=== PATIENT | female | born 1940 | race Caucasian/White ===

== ENCOUNTER 2016-08-04 13:48 | Inpatient (IN) | payer OTHER ==
[~2016-08-04] VITALS: Ht 162.6 cm; Wt 80.5 kg
[~2016-08-04 13:48] MED LIST: ALDACTONE25 MG PO; CARVEDILOL6.25 MG PO; COREG6.25 M1 PO; CORGARD20 MG PO; COZAAR50 MG PO; Chronulac,Cephulac,E PO; Corgard PO; Cozaar PO; DIABETA5 MG PO; DRISDOL50000 UNIT PO; ENULOSE10 GM/15 M PO; FLANDERS BUTTO113 GM TP; FUROSEMIDE40 MG PO; Flovent 110 mcg IH; GLUCOPHAGE500 MG PO; GLUCOVANCE 51 TABLET PO; IMODIUM2 MG PO; KEFLEX500 MG PO; LANTUS 10100 UNITS/ SC; LANTUS 3 M100 UNITS/ SC; LANTUS 3 M100 UNITS1 SC; LANTUS100 UNIT/1 SQ; LASIX40 MG PO; LATANOPROST2.5 ML BOTH EYES; LEVOTHROID150 MCG PO; LOPERAMIDE2 M1 PO; LOPERAMIDE2 MG PO; LOSARTAN POTASS50 MG G-TUBE; LUMIGAN 0.50 DROP/2. BOTH EYES; LUMIGAN 0.50 DROP/22 BOTH EYES; Levothroid,Synthroid PO; METRONIDAZOLE500 MG PO; MIRALAX, GLYCOL1 PK1 PO; NABI650T PO; OMEPRAZOLE40 M1 PO; PANTOPRAZOLE SO40 MG PO; PERCOCET 5/31 TABLET PO; PREDNISONE20 MG PO; PRILOSEC40 MG PO; PROTONIX40 MG PO; Proventil,Ventolin H IH; QUESTRAN LIGHT210 GM PO; SERTRALINE HCL50 MG PO; SODIUM BICARBO325 MG PO; SPIRONOLACTONE25 MG PO; SYNTHROID100 MCG PO; SYNTHROID125 MCG PO; SYNTHROID137 MCG PO; TRAMADOL HCL50 MG PO; Tamiflu PO; VALIUM5 MG PO; VEETIDS 500500 MG PO; VITAMIN B-12250 MCG PO; VITAMIN D250000 UNIT PO; VITAMIN E400 UNIT PO; XIFAXAN550 MG PO
[2016-08-04 14:42] LABS: HEMATOCRIT 29.4 % (36.0-46.0); MCH 32.8 PG (29.0-34.0); MCHC 33.3 G/DL (30.0-36.0); MCV 98.3 FL (83-99); MEAN PLAT.VOLUME 9.3 uM^3 (9.5-12.4); PLATELET COUNT 79 K/uL (156-360); RBC DIS.WIDTH-CV 13.7 % (11.8-14.6); RBC DIS.WIDTH-SD 49.1 % (39-53); RED BLOOD COUNT 2.99 M/uL (3.80-5.20); WHITE BLOOD COUNT 3.9 K/uL (4.1-10.2)
[2016-08-04 14:54] LABS: CHLORIDE 123 mEq/L (99-109); POTASSIUM 4.5 mEq/L (3.7-5.4); SODIUM 142 mEq/L (136-147)
[2016-08-04 14:56] LABS: GLUCOSE 190 mg/dL (70-99)
[2016-08-04 14:57] LABS: ANION GAP 9 MEQ/L (2-14)
[2016-08-04 14:58] LABS: TOTAL BILIRUBIN 0.9 mg/dL (0.0-1.0)
[2016-08-04 14:59] LABS: ALKALINE PHOSPHATASE 150 IU/L (3-129)
[2016-08-04 15:00] LABS: GFR ESTIMATE (CALCULATED) 20 mL/min/
[2016-08-04 15:01] LABS: UREA NITROGEN (BUN) 49 mg/dL (9-23)
[2016-08-04 15:03] LABS: LIPASE 63 U/L (1.0-51.0)
[2016-08-04 15:44] LABS: ADD MIUA? YES; BILIRUBIN NEGATIVE; BLOOD MODERATE; COLOR YELLOW ((YELLOW)); GLUCOSE (STRIP) 50; KETONES NEGATIVE; LEUKOCYTES SMALL; NITRITE NEGATIVE; PROTEIN (STRIP) 30; SPECIFIC GRAVITY 1.013 (1.000-1.030); UROBILINOGEN 0.2 MG/DL (0.2-1.0)
[2016-08-04 15:47] LABS: BACTERIA RARE /HPF; EPITHELIAL CELLS RARE /HPF; MUCUS TRACE /LPF; RED BLOOD CELLS 0-5 /HPF (0-5); UCUL ADDED? NO; WHITE BLOOD CELLS 30-40 /HPF (0-5)
[2016-08-04 17:00] LABS: CHLORIDE 125 mEq/L (99-109); POTASSIUM 4.8 mEq/L (3.7-5.4); SODIUM 146 mEq/L (136-147)
[2016-08-04 17:02] LABS: GLUCOSE 156 mg/dL (70-99)
[2016-08-04 17:03] LABS: ANION GAP 9 MEQ/L (2-14)
[2016-08-04 17:06] LABS: GFR ESTIMATE (CALCULATED) 21 mL/min/
[2016-08-04 17:07] LABS: UREA NITROGEN (BUN) 47 mg/dL (9-23)
[2016-08-04 17:46] LABS: CARBON DIOXIDE (BICARBONATE) 12.5 MEQ/L (20-31)
[2016-08-04] MEDS ORDERED: LUMIGAN 0.50 DROP/22 BOTH EYES (18:43)
[2016-08-04] MEDS ORDERED: LANTUS 10100 UNITS/ SC (18:44)
[2016-08-04] MEDS ORDERED: ERGOCALCIF50000 UNIT PO (18:44)
[2016-08-04 22:10] VITALS: BP 134/62
[2016-08-05] VITALS (8 sets, daily range): BP systolic 126–164; BP diastolic 58–71
[2016-08-05 00:21] LABS: C DIFF TOXIN NEGATIVE (NEGATIVE)
[2016-08-05 00:22] LABS: PROBE CHECK PASS; SPECIMEN PROCESSING CONTROL PASS
[2016-08-05 08:22] LABS: HEMATOCRIT 28.3 % (36.0-46.0); MCH 32.4 PG (29.0-34.0); MCHC 32.2 G/DL (30.0-36.0); MCV 100.7 FL (83-99); MEAN PLAT.VOLUME 9.4 uM^3 (9.5-12.4); PLATELET COUNT 85 K/uL (156-360); RBC DIS.WIDTH-CV 13.9 % (11.8-14.6); RBC DIS.WIDTH-SD 50.9 % (39-53); RED BLOOD COUNT 2.81 M/uL (3.80-5.20); WHITE BLOOD COUNT 4.1 K/uL (4.1-10.2)
[2016-08-05 09:07] LABS: ANION GAP 12 MEQ/L (2-14); CHLORIDE 125 MEQ/L (99-109); GFR ESTIMATE (CALCULATED) 22 mL/min/; POTASSIUM 4.5 MEQ/L (3.7-5.4); SAMPLE HEMOLYSIS CHECK 0; SAMPLE ICTERIC CHECK 0; SAMPLE LIPEMIA CHECK 0; SODIUM 148 MEQ/L (136-147); UREA NITROGEN (BUN) 50 mg/dL (9-23)
[2016-08-05 09:20] LABS: GLUCOSE 106 mg/dL (70-99)
[2016-08-05 11:04] LABS: INTERNAL CONTROL VALID? YES
[2016-08-05 12:18] LABS: HEMATOCRIT 27.9 % (36.0-46.0); MCV 101.8 FL (83-99)
[2016-08-05 14:59] LABS: UR CREATININE CONCENTRATION 84.9 MG/DL
[2016-08-05 15:20] LABS: BASE EXCESS -13.8 mEq/L (-3 to +3); BICARBONATE 11.1 mEq/L (22-26); CARBOXY HGB 1.9 % (0-5); METHEMOGLOBIN 1.7 % (0-1.5); PO2 104 mm Hg (80-100); pH 7.31 (7.35-7.45)
[2016-08-05 15:21] LABS: PCO2 22 mm Hg (35-45)
[2016-08-05 15:22] LABS: COMMENTS - BLOOD GASES A+C+; FI02 21 %; SITE R RADIAL; TOTAL RESP RATE 16 resp/min
[2016-08-05 15:52] LABS: HEMATOCRIT 28.1 % (36.0-46.0)
[2016-08-05 16:35] LABS: POINT-OF-CARE METER ID UU13113700
[2016-08-05 22:06] LABS: MCV 99.6 FL (83-99)
[2016-08-06 03:01] VITALS: BP 124/67; BP 138/59
[2016-08-06 06:22] LABS: HEMATOCRIT 24.2 % (36.0-46.0); MCH 33.2 PG (29.0-34.0); MCHC 33.9 G/DL (30.0-36.0); MEAN PLAT.VOLUME 10.4 uM^3 (9.5-12.4); PLATELET COUNT 71 K/uL (156-360); RBC DIS.WIDTH-CV 13.6 % (11.8-14.6); RBC DIS.WIDTH-SD 49.3 % (39-53); RED BLOOD COUNT 2.47 M/uL (3.80-5.20); WHITE BLOOD COUNT 3.2 K/uL (4.1-10.2)
[2016-08-06 06:49] LABS: ANION GAP 9 MEQ/L (2-14); CHLORIDE 114 MEQ/L (99-109); GFR ESTIMATE (CALCULATED) 20 mL/min/; POTASSIUM 3.7 MEQ/L (3.7-5.4); SAMPLE HEMOLYSIS CHECK 0; SAMPLE ICTERIC CHECK 0; SAMPLE LIPEMIA CHECK 0; UREA NITROGEN (BUN) 46 mg/dL (9-23)
[2016-08-06 06:50] LABS: GLUCOSE 234 mg/dL (70-99); SODIUM 139 MEQ/L (136-147)
[2016-08-06 07:54] VITALS: BP 147/65
[2016-08-06 10:53] LABS: INTERNAL CONTROL VALID? YES
[2016-08-06 12:00] VITALS: BP 113/56
[2016-08-06 16:00] VITALS: BP 111/54
[2016-08-06 19:20] VITALS: BP 125/61
[2016-08-06 23:24] VITALS: BP 130/63
[2016-08-07 04:03] VITALS: BP 122/65
[2016-08-07 06:08] LABS: EOSINOPHIL (%) 5.6 % (0-5); EOSINOPHIL COUNT 0.2 K/uL (0-0.3); HEMATOCRIT 24.1 % (36.0-46.0); IMMATURE GRANULOCYTE (%) 0.3 % (0.0-0.7); INSTRUMENT ABS NEUTROPHIL CT 1.4 K/uL; LYMPHOCYTE COUNT 0.9 K/uL (1.0-2.8); MCH 33.2 PG (29.0-34.0); MCV 97.6 FL (83-99); MEAN PLAT.VOLUME 10.3 uM^3 (9.5-12.4); MONOCYTE (%) 13.5 % (3-12); MONOCYTE COUNT 0.4 K/uL (0-0.8); NEUTROPHIL COUNT 1.4 K/uL (1.8-6.4); PLATELET COUNT 63 K/uL (156-360); RBC DIS.WIDTH-CV 13.5 % (11.8-14.6); RBC DIS.WIDTH-SD 48.3 % (39-53); RED BLOOD COUNT 2.47 M/uL (3.80-5.20); WHITE BLOOD COUNT 2.9 K/uL (4.1-10.2)
[2016-08-07 06:47] LABS: ALKALINE PHOSPHATASE 132 IU/L (3-129); ANION GAP 7 MEQ/L (2-14); CHLORIDE 113 MEQ/L (99-109); GFR ESTIMATE (CALCULATED) 22 mL/min/; POTASSIUM 3.8 MEQ/L (3.7-5.4); SAMPLE HEMOLYSIS CHECK 0; SAMPLE ICTERIC CHECK 0; SAMPLE LIPEMIA CHECK 0; SODIUM 143 MEQ/L (136-147); TOTAL BILIRUBIN 0.7 MG/DL (0.0-1.0); UREA NITROGEN (BUN) 42 mg/dL (9-23)
[2016-08-07 06:50] LABS: GLUCOSE 85 mg/dL (70-99)
[2016-08-07 06:53] LABS: INTER. NORMALIZED RATIO 1.2; PROTHROMBIN TIME 12.3 (9.2-11.2)
[2016-08-07 08:40] VITALS: BP 123/61
[2016-08-07 16:14] VITALS: BP 132/59
[2016-08-07 23:04] VITALS: BP 136/60
[2016-08-08 07:12] LABS: EOSINOPHIL (%) 4.7 % (0-5); EOSINOPHIL COUNT 0.1 K/uL (0-0.3); HEMATOCRIT 25.2 % (36.0-46.0); IMMATURE GRANULOCYTE (%) 0.3 % (0.0-0.7); INSTRUMENT ABS NEUTROPHIL CT 1.6 K/uL; LYMPHOCYTE COUNT 0.8 K/uL (1.0-2.8); MCH 32.2 PG (29.0-34.0); MCHC 32.9 G/DL (30.0-36.0); MCV 97.7 FL (83-99); MEAN PLAT.VOLUME 10.4 uM^3 (9.5-12.4); MONOCYTE (%) 12.8 % (3-12); MONOCYTE COUNT 0.4 K/uL (0-0.8); NEUTROPHIL (%) 54.8 % (45-76); NEUTROPHIL COUNT 1.6 K/uL (1.8-6.4); PLATELET COUNT 63 K/uL (156-360); RBC DIS.WIDTH-CV 13.7 % (11.8-14.6); RBC DIS.WIDTH-SD 49.3 % (39-53); RED BLOOD COUNT 2.58 M/uL (3.80-5.20)
[2016-08-08 07:16] VITALS: BP 125/61
[2016-08-08 07:26] LABS: INTER. NORMALIZED RATIO 1.2; PROTHROMBIN TIME 12.1 (9.2-11.2)
[2016-08-08 07:56] LABS: ALKALINE PHOSPHATASE 150 IU/L (3-129); ANION GAP 7 MEQ/L (2-14); CHLORIDE 114 MEQ/L (99-109); GFR ESTIMATE (CALCULATED) 22 mL/min/; POTASSIUM 4.2 MEQ/L (3.7-5.4); SAMPLE HEMOLYSIS CHECK 0; SAMPLE ICTERIC CHECK 0; SAMPLE LIPEMIA CHECK 0; SODIUM 145 MEQ/L (136-147); UREA NITROGEN (BUN) 41 mg/dL (9-23)
[2016-08-08 07:59] LABS: GLUCOSE 134 mg/dL (70-99); TOTAL BILIRUBIN 0.5 MG/DL (0.0-1.0)
[2016-08-08 22:48] VITALS: BP 156/66
[2016-08-09 06:50] LABS: EOSINOPHIL (%) 6.3 % (0-5); EOSINOPHIL COUNT 0.3 K/uL (0-0.3); HEMATOCRIT 27.9 % (36.0-46.0); IMMATURE GRANULOCYTE (%) 0.2 % (0.0-0.7); INSTRUMENT ABS NEUTROPHIL CT 2.3 K/uL; LYMPHOCYTE COUNT 1.5 K/uL (1.0-2.8); MCH 32.6 PG (29.0-34.0); MCHC 33.3 G/DL (30.0-36.0); MCV 97.9 FL (83-99); MEAN PLAT.VOLUME 10.7 uM^3 (9.5-12.4); MONOCYTE (%) 11.5 % (3-12); MONOCYTE COUNT 0.5 K/uL (0-0.8); NEUTROPHIL (%) 48.7 % (45-76); NEUTROPHIL COUNT 2.3 K/uL (1.8-6.4); RBC DIS.WIDTH-CV 13.6 % (11.8-14.6); RBC DIS.WIDTH-SD 48.8 % (39-53); RED BLOOD COUNT 2.85 M/uL (3.80-5.20); WHITE BLOOD COUNT 4.6 K/uL (4.1-10.2)
[2016-08-09 06:52] LABS: PLATELET COUNT 87 K/uL (156-360)
[2016-08-09 07:12] LABS: ALKALINE PHOSPHATASE 134 IU/L (3-129); ANION GAP 11 MEQ/L (2-14); CHLORIDE 110 MEQ/L (99-109); GFR ESTIMATE (CALCULATED) 27 mL/min/; POTASSIUM 3.8 MEQ/L (3.7-5.4); SAMPLE HEMOLYSIS CHECK 0; SAMPLE ICTERIC CHECK 0; SAMPLE LIPEMIA CHECK 0; SODIUM 145 MEQ/L (136-147); UREA NITROGEN (BUN) 37 mg/dL (9-23)
[2016-08-09 07:14] LABS: GLUCOSE 63 mg/dL (70-99); TOTAL BILIRUBIN 0.9 MG/DL (0.0-1.0)
[2016-08-09 07:42] VITALS: BP 128/63
[2016-08-09] MEDS ORDERED: NADOLOL20 MG PO (10:38)
[2016-08-09] MEDS ORDERED: PROTONIX40 MG PO (10:38)
== END 2016-08-09 11:27 | disposition home or self-care (01) | DRG 392 ==
LOC: EME 13:48 → EDOF 19:50 → 5WEST 19:50 → EDOF 19:50 → 5WEST 22:16 → 5EAST 08-05 10:22
PROVIDERS: Emergency Medicine; Hospitalist; Internal Medicine Gastroenterology; Internal Medicine Nephrology; Nurse Practitioner Adult Health; Pediatrics; Physician Assistant Medical
PROC: 0DB68ZX Excision of Stomach, Via Natural or Artificial Opening Endoscopic, Diagnostic (ICD-10-PCS; principal; 2016-08-08)
DX: K59.1 Functional diarrhea (principal); N17.9 Acute kidney failure, unspecified; K76.6 Portal hypertension; N18.4 Chronic kidney disease, stage 4 (severe); E11.22 Type 2 diabetes mellitus with diabetic chronic kidney disease; I85.00 Esophageal varices without bleeding; E87.0 Hyperosmolality and hypernatremia; E86.0 Dehydration; N30.01 Acute cystitis with hematuria; C78.7 Secondary malignant neoplasm of liver and intrahepatic bile duct; E87.2 Acidosis; K29.70 Gastritis, unspecified, without bleeding; D63.1 Anemia in chronic kidney disease; N18.3 Chronic kidney disease, stage 3 (moderate); R11.2 Nausea with vomiting, unspecified; E03.9 Hypothyroidism, unspecified; K44.9 Diaphragmatic hernia without obstruction or gangrene; K74.60 Unspecified cirrhosis of liver; H40.9 Unspecified glaucoma; I12.9 Hypertensive chronic kidney disease with stage 1 through stage 4 chronic kidney disease, or unspecified chronic kidney disease; E78.5 Hyperlipidemia, unspecified; Z85.038 Personal history of other malignant neoplasm of large intestine; Z90.49 Acquired absence of other specified parts of digestive tract; Z83.3 Family history of diabetes mellitus; Z87.891 Personal history of nicotine dependence
CPT/HCPCS: 36600; 74176; 80048; 80048 91; 80053; 80069; 81003; 82010; 82272; 82436; 82570; 82803; 82948; 83605; 83630; 83690; 83930; 84100; 84133; 84300; 84550; 85014; 85018; 85025; 85025 91; 85027; 85610; 87086; 87177; 87329; 87493; 87506; 88305; 88342 TC; 99281; 99284; C9113; G0378; J0696; J2405; J7030; J7050; J7070

== ENCOUNTER 2016-09-10 00:14 | Emergency (ER) | payer OTHER ==
[~2016-09-10] VITALS: Ht 167.6 cm; Wt 80.2 kg
[~2016-09-10 00:14] MED LIST changes: +ERGOCALCIF50000 UNIT PO; +NADOLOL20 MG PO
[2016-09-10 01:00] LABS: CARBON DIOXIDE (BICARBONATE) 27.1 MEQ/L (20-31)
[2016-09-10 01:09] LABS: EOSINOPHIL (%) 0.8 % (0-5); HEMATOCRIT 25.7 % (36.0-46.0); IMMATURE GRANULOCYTE (%) 0.4 % (0.0-0.7); INSTRUMENT ABS NEUTROPHIL CT 1.8 K/uL; LYMPHOCYTE COUNT 0.5 K/uL (1.0-2.8); MCH 32.7 PG (29.0-34.0); MCHC 34.2 G/DL (30.0-36.0); MCV 95.5 FL (83-99); MEAN PLAT.VOLUME 11.1 uM^3 (9.5-12.4); MONOCYTE (%) 4.5 % (3-12); MONOCYTE COUNT 0.1 K/uL (0-0.8); NEUTROPHIL (%) 72.9 % (45-76); NEUTROPHIL COUNT 1.8 K/uL (1.8-6.4); NRBC (%) 0.8 /100 WBC (0-0); PLATELET COUNT 67 K/uL (156-360); RBC DIS.WIDTH-CV 13.2 % (11.8-14.6); RED BLOOD COUNT 2.69 M/uL (3.80-5.20); WHITE BLOOD COUNT 2.4 K/uL (4.1-10.2)
[2016-09-10 01:12] LABS: CHLORIDE 98 mEq/L (99-109); POTASSIUM 4.7 mEq/L (3.7-5.4); SODIUM 132 mEq/L (136-147)
[2016-09-10 01:14] LABS: GLUCOSE 343 mg/dL (70-99)
[2016-09-10 01:15] LABS: ANION GAP 12 MEQ/L (2-14)
[2016-09-10 01:16] LABS: TOTAL BILIRUBIN 0.9 mg/dL (0.0-1.0)
[2016-09-10 01:18] LABS: ALKALINE PHOSPHATASE 184 IU/L (3-129); GFR ESTIMATE (CALCULATED) 18 mL/min/
[2016-09-10 01:19] LABS: UREA NITROGEN (BUN) 47 mg/dL (9-23)
[2016-09-10 01:27] LABS: TROP-I INTERPRETATION NEGATIVE; TROPONIN-I 0.01 ng/mL (0.0-0.30)
[2016-09-10 02:17] LABS: POINT-OF-CARE METER ID UU14100415
[2016-09-10 02:56] LABS: POINT-OF-CARE METER ID UU14100415
[2016-09-10 04:05] VITALS: BP 105/55
== END 2016-09-10 04:05 | disposition home or self-care (01) ==
LOC: EME → EDBD 00:14 → EME 04:05
PROVIDERS: Emergency Medicine
DX: R06.00 Dyspnea, unspecified (principal); E11.65 Type 2 diabetes mellitus with hyperglycemia; Z79.4 Long term (current) use of insulin; R11.0 Nausea; R20.2 Paresthesia of skin; I10 Essential (primary) hypertension; Z85.038 Personal history of other malignant neoplasm of large intestine; Z85.05 Personal history of malignant neoplasm of liver; Z90.49 Acquired absence of other specified parts of digestive tract; Z87.891 Personal history of nicotine dependence
CPT/HCPCS: 71020; 80053; 82803; 82948; 84484; 85025; 93005; 99281; 99284

== ENCOUNTER 2016-09-30 21:00 | Inpatient (IN) | payer OTHER ==
[~2016-09-30] VITALS: Ht 167.6 cm; Wt 78.7 kg
[2016-09-30 22:40] LABS: EOSINOPHIL (%) 3.7 % (0-5); EOSINOPHIL COUNT 0.1 K/uL (0-0.3); HEMATOCRIT 30.8 % (36.0-46.0); IMMATURE GRANULOCYTE (%) 0.3 % (0.0-0.7); INSTRUMENT ABS NEUTROPHIL CT 1.7 K/uL; MCHC 33.8 G/DL (30.0-36.0); MCV 94.8 FL (83-99); MEAN PLAT.VOLUME 10.4 uM^3 (9.5-12.4); MONOCYTE (%) 13.2 % (3-12); MONOCYTE COUNT 0.4 K/uL (0-0.8); NEUTROPHIL (%) 52.4 % (45-76); NEUTROPHIL COUNT 1.7 K/uL (1.8-6.4); PLATELET COUNT 66 K/uL (156-360); RBC DIS.WIDTH-CV 13.2 % (11.8-14.6); RBC DIS.WIDTH-SD 46.4 % (39-53); RED BLOOD COUNT 3.25 M/uL (3.80-5.20); WHITE BLOOD COUNT 3.3 K/uL (4.1-10.2)
[2016-09-30 22:48] LABS: CHLORIDE 103 mEq/L (99-109); POTASSIUM 4.5 mEq/L (3.7-5.4); SODIUM 140 mEq/L (136-147)
[2016-09-30 22:50] LABS: GLUCOSE 179 mg/dL (70-99)
[2016-09-30 22:52] LABS: ANION GAP 14 MEQ/L (2-14); TOTAL BILIRUBIN 0.9 mg/dL (0.0-1.0); TROP-I INTERPRETATION NEGATIVE; TROPONIN-I 0.04 ng/mL (0.0-0.30)
[2016-09-30 22:54] LABS: ALKALINE PHOSPHATASE 217 IU/L (3-129); GFR ESTIMATE (CALCULATED) 14 mL/min/
[2016-09-30 22:55] LABS: UREA NITROGEN (BUN) 66 mg/dL (9-23)
[2016-09-30 22:58] LABS: LIPASE 53 U/L (1.0-51.0)
[2016-09-30 23:13] LABS: ADD MIUA? YES; BILIRUBIN NEGATIVE; BLOOD SMALL; COLOR STRAW ((YELLOW)); GLUCOSE (STRIP) 50; KETONES NEGATIVE; LEUKOCYTES MODERATE; NITRITE NEGATIVE; PROTEIN (STRIP) NEGATIVE; SPECIFIC GRAVITY 1.009 (1.000-1.030); UROBILINOGEN 0.2 MG/DL (0.2-1.0)
[2016-09-30 23:30] LABS: BACTERIA RARE /HPF; EPITHELIAL CELLS RARE /HPF; MUCUS TRACE /LPF; RED BLOOD CELLS 0-5 /HPF (0-5); UCUL ADDED? YES; WHITE BLOOD CELLS 20-30 /HPF (0-5)
[2016-10-01] MEDS ORDERED: PROTONIX40 MG PO (00:42)
[2016-10-01] MEDS ORDERED: CORGARD20 MG PO (00:49)
[2016-10-01 03:14] LABS: POINT-OF-CARE METER ID UU13113747
[2016-10-01 04:57] VITALS: BP 148/69
[2016-10-01 05:14] LABS: POINT-OF-CARE METER ID UU14208750
[2016-10-01 06:44] LABS: POINT-OF-CARE METER ID UU14208750
[2016-10-01 07:10] VITALS: BP 133/67
[2016-10-01 11:30] VITALS: BP 147/66
[2016-10-01 11:52] LABS: POINT-OF-CARE METER ID UU14208750
[2016-10-01 15:15] VITALS: BP 150/67
[2016-10-01 17:17] LABS: POINT-OF-CARE METER ID UU14208750
[2016-10-01 18:32] LABS: POINT-OF-CARE METER ID UU14208750
[2016-10-01 19:58] VITALS: BP 137/65
[2016-10-01 21:59] LABS: POINT-OF-CARE METER ID UU14162508
[2016-10-01 23:26] VITALS: BP 150/67
[2016-10-02 03:40] VITALS: BP 137/65
[2016-10-02 05:31] LABS: POINT-OF-CARE METER ID UU14162508
[2016-10-02 06:13] LABS: HEMATOCRIT 27.9 % (36.0-46.0); MCH 32.1 PG (29.0-34.0); MCV 97.2 FL (83-99); MEAN PLAT.VOLUME 11.4 uM^3 (9.5-12.4); PLATELET COUNT 78 K/uL (156-360); RBC DIS.WIDTH-CV 13.5 % (11.8-14.6); RBC DIS.WIDTH-SD 48.8 % (39-53); RED BLOOD COUNT 2.87 M/uL (3.80-5.20); WHITE BLOOD COUNT 3.8 K/uL (4.1-10.2)
[2016-10-02 06:29] LABS: POINT-OF-CARE METER ID UU14162508
[2016-10-02 06:42] LABS: ANION GAP 13 MEQ/L (2-14); CHLORIDE 114 MEQ/L (99-109); GFR ESTIMATE (CALCULATED) 17 mL/min/; POTASSIUM 4.2 MEQ/L (3.7-5.4); SAMPLE HEMOLYSIS CHECK 0; SAMPLE ICTERIC CHECK 0; SAMPLE LIPEMIA CHECK 0; UREA NITROGEN (BUN) 51 mg/dL (9-23)
[2016-10-02 06:48] LABS: GLUCOSE 69 mg/dL (70-99); SODIUM 148 MEQ/L (136-147)
[2016-10-02 07:20] VITALS: BP 136/63
[2016-10-02 11:36] LABS: POINT-OF-CARE METER ID UU14162508
[2016-10-02 13:05] LABS: C DIFF TOXIN NEGATIVE (NEGATIVE)
[2016-10-02 13:06] LABS: PROBE CHECK PASS; SPECIMEN PROCESSING CONTROL PASS
== END 2016-10-02 15:00 | disposition home or self-care (01) | DRG 683 ==
LOC: EME → EDBD 21:00 → EDOF 10-01 01:56 → ENRESERV 10-01 01:57 → 2EAST 10-01 04:51
PROVIDERS: Emergency Medicine; Hospitalist; Internal Medicine
DX: N17.9 Acute kidney failure, unspecified (principal); C78.7 Secondary malignant neoplasm of liver and intrahepatic bile duct; E11.65 Type 2 diabetes mellitus with hyperglycemia; N39.0 Urinary tract infection, site not specified; N18.4 Chronic kidney disease, stage 4 (severe); I12.9 Hypertensive chronic kidney disease with stage 1 through stage 4 chronic kidney disease, or unspecified chronic kidney disease; K21.9 Gastro-esophageal reflux disease without esophagitis; E11.22 Type 2 diabetes mellitus with diabetic chronic kidney disease; E78.5 Hyperlipidemia, unspecified; E03.9 Hypothyroidism, unspecified; D63.1 Anemia in chronic kidney disease; E86.0 Dehydration; K74.60 Unspecified cirrhosis of liver; Z86.73 Personal history of transient ischemic attack (TIA), and cerebral infarction without residual deficits; D61.818 Other pancytopenia; H40.9 Unspecified glaucoma; Z90.49 Acquired absence of other specified parts of digestive tract; Z85.05 Personal history of malignant neoplasm of liver; Z85.038 Personal history of other malignant neoplasm of large intestine
CPT/HCPCS: 80048; 80053; 81003; 82948; 83690; 84484; 85025; 85027; 87086 GA; 87493; 93005; 99281; 99285; J0696; J1644; J1815; J2405; J7030; J7040; J7050; S0028

== ENCOUNTER 2017-05-22 11:50 | Emergency (ER) | payer OTHER ==
[~2017-05-22] VITALS: Ht 167.6 cm; Wt 82.2 kg
[2017-05-22 13:26] LABS: EOSINOPHIL (%) 4.9 % (0-5); EOSINOPHIL COUNT 0.2 K/uL (0-0.3); HEMATOCRIT 23.9 % (36.0-46.0); HEMOGLOBIN 8.2 G/DL (11.9-15.5); IMMATURE GRANULOCYTE (%) 0.3 % (0.0-0.7); LYMPHOCYTE COUNT 0.9 K/uL (1.0-2.8); MCH 33.6 PG (29.0-34.0); MCHC 34.3 G/DL (30.0-36.0); MONOCYTE (%) 15.5 % (3-12); MONOCYTE COUNT 0.5 K/uL (0-0.8); NEUTROPHIL (%) 50.3 % (45-76); NEUTROPHIL COUNT 1.5 K/uL (1.8-6.4); PLATELET COUNT 88 K/uL (156-360); RBC DIS.WIDTH-CV 13.4 % (11.8-14.6); RED BLOOD COUNT 2.44 M/uL (3.80-5.20)
[2017-05-22 13:42] LABS: ALBUMIN 2.9 g/dL (3.2-4.8); CHLORIDE 110 mEq/L (99-109); POTASSIUM 3.8 mEq/L (3.7-5.4); SODIUM 141 mEq/L (136-147)
[2017-05-22 13:45] LABS: GLUCOSE 284 mg/dL (70-99); TOTAL PROTEIN 5.6 g/dL (6.4-8.3)
[2017-05-22 13:47] LABS: TOTAL BILIRUBIN 0.9 mg/dL (0.0-1.0)
[2017-05-22 13:48] LABS: ALKALINE PHOSPHATASE 141 IU/L (3-129); CREATININE 2.8 mg/dL (0.6-1.3); GFR ESTIMATE (CALCULATED) 17 mL/min/
[2017-05-22 13:49] LABS: UREA NITROGEN (BUN) 55 mg/dL (9-23)
[2017-05-22 13:50] LABS: AST (GOT) 34 IU/L (2-34)
[2017-05-22 13:51] LABS: ALT (GPT) 19 IU/L (3-49)
[2017-05-22 13:52] LABS: LIPASE 24 U/L (1.0-51.0)
[2017-05-22 16:45] VITALS: BP 130/60
== END 2017-05-22 16:46 | disposition home or self-care (01) ==
LOC: EME 11:50
PROVIDERS: Physician Assistant
DX: M54.9 Dorsalgia, unspecified (principal); G89.29 Other chronic pain; R18.8 Other ascites; K74.60 Unspecified cirrhosis of liver; E11.9 Type 2 diabetes mellitus without complications; E78.5 Hyperlipidemia, unspecified; Z79.4 Long term (current) use of insulin; Z87.891 Personal history of nicotine dependence; Z86.73 Personal history of transient ischemic attack (TIA), and cerebral infarction without residual deficits; Z90.49 Acquired absence of other specified parts of digestive tract; Z85.9 Personal history of malignant neoplasm, unspecified; Z91.040 Latex allergy status; Z88.6 Allergy status to analgesic agent; Z88.1 Allergy status to other antibiotic agents; Z88.8 Allergy status to other drugs, medicaments and biological substances
CPT/HCPCS: 74176; 80053; 83690; 85025; 99281; 99284; J3010